=== PATIENT | male | born 1995 | race Caucasian/White ===

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

== ENCOUNTER 2017-08-04 11:10 | Emergency (ER) | payer BC | END 2017-08-04 13:49 | disposition left against medical advice (07) | LOC: UCCORT 11:10 | DX: J32.9 Chronic sinusitis, unspecified (principal); Z53.21 Procedure and treatment not carried out due to patient leaving prior to being seen by health care provider ==

== ENCOUNTER 2017-08-09 11:51 | Emergency (ER) | payer BC ==
[2017-08-09 15:15] VITALS: BP 125/63
--- NOTE | 2017-08-09 15:21 | UC ---
Throat Pain/Nasal Hal HPI - HPI Summary HPI Summary: Pt c/o nasal congestion, sinus pressure and pain X 5 months. - History of Current Complaint Stated Complaint: SINUS COMPLAINT Time Seen by Provider: 08/09/17 15:02 Hx Obtained From: Patient Onset/Duration: Gradual Onset, Lasting Weeks, Still Present, Worse Since - onset Severity: Moderate Pain Intensity: 0 Associated Signs & Symptoms: Positive: Sinus Discomfort - Epiglottits Risk Factors Epiglottis Risk Factors: Negative - Allergies/Home Medications Allergies/Adverse Reactions: Allergies Allergy/AdvReac Type Severity Reaction Status Date / Time No Known Allergies Allergy Verified 08/09/17 15:12 PMH/Surg Hx/FS Hx/Imm Hx Previously Healthy: Yes - Surgical History Surgical History: None - Family History Known Family History: Positive: Other - DEnies FMH of asthma - Social History Occupation: Student Lives: Dormitory/Roommates Alcohol Use: Occasionally Substance Use Type: None Smoking Status (MU): Never Smoked Tobacco Have You Smoked in the Last Year: No Review of Systems Constitutional: Fatigue Skin: Negative Eyes: Negative ENT: Sinus Congestion, Sinus Pain/Tenderness Respiratory: Cough Cardiovascular: Negative Gastrointestinal: Negative Genitourinary: Negative Motor: Negative Neurovascular: Negative Musculoskeletal: Negative Neurological: Headache Psychological: Negative Is Patient Immunocompromised?: No All Other Systems Reviewed And Are Negative: No Physical Exam Triage Information Reviewed: Yes Appearance: Ill-Appearing Vital Signs: Initial Vital Signs Temp 98.4 F 08/09/17 15:10 Pulse 50 08/09/17 15:10 Resp 14 08/09/17 15:10 BP 125/63 08/09/17 15:10 Pulse Ox 98 08/09/17 15:10 Vital Signs Reviewed: Yes Eye Exam: Normal ENT Exam: Other ENT: Positive: Nasal congestion, Sinus tenderness Dental Exam: Normal Neck exam: Normal Respiratory Exam: Normal Cardiovascular Exam: Normal Musculoskeletal Exam: Normal Neurological Exam: Normal Psychological Exam: Normal Skin Exam: Normal Throat Pain/Nasal Course/Dx - Differential Dx/Diagnosis Differential Diagnosis/HQI/PQRI: Sinusitis, URI Provider Diagnoses: Sinusitis. allergic rhinitis Discharge - Discharge Plan Condition: Stable Disposition: HOME Prescriptions: Amoxicillin PO (*) [Amoxicillin 875 MG (*)] 875 mg PO Q12H #20 tab Cetirizine HCl/Pseudoephedrine [Zyrtec-D Tablet] 1 each PO DAILY #14 tab Patient Education Materials: Sinusitis (ED) Referrals: [facility] [place] [facility] [place]] Non Staff,Doctor [Primary Care Provider] -
== END 2017-08-09 15:32 | disposition home or self-care (01) ==
LOC: UCCORT 11:51
DX: J32.9 Chronic sinusitis, unspecified (principal); J30.9 Allergic rhinitis, unspecified
CPT/HCPCS: 99212; G0463

== ENCOUNTER 2017-09-02 18:29 | Emergency (ER) | payer BC ==
[2017-09-02 19:20] VITALS: BP 126/70
--- NOTE | 2017-09-02 20:30 | UC ---
HPI Febrile Illness - HPI Summary HPI Summary: 2 day history of fever, cough, congestion, myalgias, headache. Flu B positive. - History of Current Complaint Chief Complaint: UCGeneralIllness Time Seen by Provider: 09/02/17 19:22 Hx Obtained From: Patient Onset/Duration: Started Days Ago - 2 Timing: Constant Initial Severity: Moderate Current Severity: Moderate Pain Intensity: 2 Associated Signs and Symptoms: Arthralgia, Chills, Headache - Risk Factors Pseudomonas Risk Factors: Negative Serious Bacterial Infection Risk Factors: Negative - Allergy/Home Medications Allergies/Adverse Reactions: Allergies Allergy/AdvReac Type Severity Reaction Status Date / Time No Known Allergies Allergy Verified 09/02/17 19:17 PMH/Surg Hx/FS Hx/Imm Hx Previously Healthy: Yes - Surgical History Surgical History: None - Family History Known Family History: Positive: None - parents living and healthy, Other - DEnies FMH of asthma - Social History Occupation: Student Lives: Alone Alcohol Use: Occasionally Substance Use Type: None Smoking Status (MU): Never Smoked Tobacco Have You Smoked in the Last Year: No Review of Systems Constitutional: Fever, Fatigue ENT: Sore Throat, Sinus Congestion Respiratory: Cough Musculoskeletal: Myalgia Neurological: Headache Is Patient Immunocompromised?: No All Other Systems Reviewed And Are Negative: Yes Physical Exam Triage Information Reviewed: Yes Appearance: Ill-Appearing - looks unwell Vital Signs: Initial Vital Signs Temp 100.5 F 09/02/17 19:14 Pulse 86 09/02/17 19:14 Resp 18 09/02/17 19:14 BP 126/70 09/02/17 19:14 Pulse Ox 98 09/02/17 19:14 Eyes: Positive: Conjunctiva Clear ENT: Positive: Pharynx normal, TM dull Neck: Positive: Supple, Nontender, No Lymphadenopathy Respiratory: Positive: Lungs clear, Normal breath sounds Cardiovascular: Positive: RRR, No Murmur Abdomen Description: Positive: Nontender, No Organomegaly, Soft Musculoskeletal Exam: Normal Neurological: Positive: Alert, Muscle Tone Normal Psychological Exam: Normal Skin Exam: Normal Diagnostics - Laboratory Diagnostic Studies Completed/Ordered: flu B positive Course/Dx - Course Course Of Treatment: increase fluids, tamiflu, tessalon perles for cough - Febrile Illness Differential Diagnoses: Other: - influenza - Diagnoses Clinic Provider Diagnoses: influenza B Discharge - Discharge Plan Condition: Stable Disposition: HOME Prescriptions: Benzonatate CAP* [Tessalon 100 MG CAP*] 100 mg PO TID PRN #30 cap PRN Reason: Cough Oseltamivir Phosphate [Tamiflu] 75 mg PO BID #10 capsule Patient Education Materials: Influenza (ED) Referrals: Non Staff,Doctor [Primary Care Provider] - Additional Instructions: As discussed, stay hydrated, use ibuprofen for headache, and you have a prescription for tessalon perles to suppress cough. Take tamiflu to decrease the clinical symptoms. You are NOT fit for travel to [place] this weekend. You will still be infectious.
== END 2017-09-02 20:43 | disposition home or self-care (01) ==
LOC: UCCORT 18:29
DX: J10.1 Influenza due to other identified influenza virus with other respiratory manifestations (principal)
CPT/HCPCS: 87502; 99212; G0463

== ENCOUNTER 2018-08-22 09:12 | Emergency (ER) | payer BC ==
--- NOTE | 2018-08-22 10:06 | UC ---
UC General HPI - HPI Summary HPI Summary: stitches to face 9 days ago by [facility]. no headache or complaints. was told to have them removed in 5 days but ended up waiting. - History of Current Complaint Stated Complaint: SUTURE REMOVAL Time Seen by Provider: 08/22/18 09:56 Hx Obtained From: Patient Associated Signs & Symptoms: Negative: Fever, Headache - Allergy/Home Medications Allergies/Adverse Reactions: Allergies Allergy/AdvReac Type Severity Reaction Status Date / Time No Known Allergies Allergy Verified 08/22/18 09:58 PMH/Surg Hx/FS Hx/Imm Hx Respiratory History: Asthma - Surgical History Surgical History: None - Family History Known Family History: Positive: None - parents living and healthy, Other - DEnies FMH of asthma - Social History Alcohol Use: Occasionally Substance Use Type: Marijuana Substance Use Comment - Amount & Last Used: yesterday Smoking Status (MU): Former Smoker Type: Cigarettes Have You Smoked in the Last Year: Yes When Did the Patient Quit Smoking/Using Tobacco: 5 days ago - Immunization History Hx Tetanus, Diphtheria Vaccination: Yes Vaccination Up to Date: Yes Review of Systems All Other Systems Reviewed And Are Negative: Yes Constitutional: Positive: Negative Skin: Positive: Negative Eyes: Positive: Negative ENT: Positive: Negative Respiratory: Positive: Negative Cardiovascular: Positive: Negative Gastrointestinal: Positive: Negative Genitourinary: Positive: Negative Motor: Positive: Negative Neurovascular: Positive: Negative Musculoskeletal: Positive: Negative Neurological: Positive: Negative Psychological: Positive: Negative Physical Exam Triage Information Reviewed: Yes Appearance: Well-Appearing Vital Signs Reviewed: Yes Eyes: Positive: Conjunctiva Clear ENT: Positive: Normal ENT inspection Neck: Positive: Supple Respiratory: Positive: Lungs clear Cardiovascular: Positive: RRR, No Murmur Abdomen Description: Positive: Nontender Bowel Sounds: Positive: Present Musculoskeletal: Positive: ROM Intact Neurological: Positive: Alert Psychological: Positive: Age Appropriate Behavior Skin Exam: Normal, Other - 6 stitches L medial brow area. site healed with no erythema or swelling. scab has formed over some of the stitches. Skin: Negative: Rashes Course/Dx - Course Course Of Treatment: 6 stitches removed from face. tolerated well. BP elevated , no hx htn. consumed [employer] plus arguing with girlfriend at time of visit to which he attributes his current BP. - Diagnoses Provider Diagnosis: Visit for suture removal Discharge - Sign-Out/Discharge Documenting (check all that apply): Patient Departure All imaging exams completed and their final reports reviewed: No Studies - Discharge Plan Condition: Stable Disposition: HOME Prescriptions: Albuterol HFA INHALER* [Ventolin HFA Inhaler*] 2 puff INH Q6H PRN #1 mdi PRN Reason: Sob/Wheezing Patient Education Materials: Stitchtaina Removal (ED) Referrals: LEILANI CORDERO [AbhishekBUSINESS, APPLICATION, OTHER] - If Needed - Billing Disposition and Condition Condition: STABLE Disposition: Home - Attestation Statements Provider Attestation: Per institutional requirements, I have reviewed the chart, however, I was not consulted specifically or made aware of this patient by the midlevel provider. I did not personally evaluate, interact with , or disposition this patient.
[2018-08-22 10:09] VITALS: BP 142/86
== END 2018-08-22 10:11 | disposition home or self-care (01) ==
LOC: UCCORT 09:12
DX: S09.93XD Unspecified injury of face, subsequent encounter (principal); J45.909 Unspecified asthma, uncomplicated; Z87.891 Personal history of nicotine dependence; X58.XXXD Exposure to other specified factors, subsequent encounter
CPT/HCPCS: 99212; G0463

== ENCOUNTER 2018-09-05 07:51 | Emergency (ER) | payer BC ==
[2018-09-05 08:29] VITALS: BP 131/84
--- NOTE | 2018-09-05 08:35 | UC ---
FLU HPI - HPI Summary HPI Summary: pt present with concern for flu 2 day progressive body aches, fatigue, sinus prssure, sore throat. No n/v. decreased appetitie. + flu contact no rash + OTC meds. no cancer Medications reviewed - History of Current Complaint Chief Complaint: UCRespiratory Stated Complaint: SORE THROAT COUGH SINUS FATIGUE Time Seen by Provider: 09/05/18 08:31 Hx Obtained From: Patient Onset/Duration: Gradual Onset Pain Intensity: 7 - Allergy/Home Medications Allergies/Adverse Reactions: Allergies Allergy/AdvReac Type Severity Reaction Status Date / Time No Known Allergies Allergy Verified 09/05/18 08:29 PMH/Surg Hx/FS Hx/Imm Hx Previously Healthy: Yes - Surgical History Surgical History: None - Family History Known Family History: Positive: None - parents living and healthy, Other - DEnies FMH of asthma, Non-Contributory - Social History Occupation: Student Lives: Dormitory/Roommates Alcohol Use: Occasionally Substance Use Type: Marijuana Substance Use Comment - Amount & Last Used: 'EVERY OTHER DAY' Smoking Status (MU): Former Smoker Type: eCigarettes Have You Smoked in the Last Year: Yes When Did the Patient Quit Smoking/Using Tobacco: 5 days ago - Immunization History Most Recent Tetanus Shot: WITHIN 5 YEARS Hx Tetanus, Diphtheria Vaccination: Yes Vaccination Up to Date: Yes Review of Systems All Other Systems Reviewed And Are Negative: Yes Constitutional: Positive: Fever, Fatigue Eyes: Positive: Negative ENT: Positive: Sore Throat, Nasal Discharge, Sinus Congestion, Sinus Pain/ Tenderness Respiratory: Positive: Cough Physical Exam - Summary Physical Exam Summary: Vital Signs Reviewed: Yes A+Ox3, tired appearing Eyes: Conjunctiva Clear, ENRIKE. EOM intact and full ENT: Hearing grossly normal TM x 2 with scant fluid, no erythema turbinates inflammed and boggy, + PND, mmoist, uvula midline, no exudate, no erythema Neck: Positive: Supple Respiratory: Positive: No respiratory distress, No accessory muscle use + CTA throughout no w/r intermittent cough Cardiovascular: RRR nl s1, s2 no m/r CBT <2 sec abd soft + BS nt/nd no guarding, no distension Musculoskeletal Exam: KERNS x 4 without difficulty Strength Intact, ROM Intact Neurological: Positive: Alert, + sensation throughout Psychological: Positive: Normal Response To Family Skin: Positive: no rash, no ecchymosis Triage Information Reviewed: Yes Vital Signs: Initial Vital Signs Temp 97.3 F 09/05/18 08:26 Pulse 55 09/05/18 08:26 Resp 16 09/05/18 08:26 BP 131/84 09/05/18 08:26 Pulse Ox 99 09/05/18 08:26 Flu Course/Dx - Course Course Of Treatment: Pt with body aches, fatigue, congestion, sore throat - concern for flu. VSS. congestion, mild erythema throat, cough. flu and strep neg. hydrate. humidified air. motrin/apap. secretion precatuion - Differential Dx/Diagnosis Provider Diagnosis: URI (upper respiratory infection), Viral syndrome Discharge - Sign-Out/Discharge Documenting (check all that apply): Patient Departure All imaging exams completed and their final reports reviewed: No Studies - Discharge Plan Condition: Stable Disposition: HOME Patient Education Materials: Viral Syndrome (ED) Forms: *Gen. Provider Communication, *School Release Referrals: [facility] [Outside] No Primary Care Phys,NOPCP [Primary Care Provider] - Additional Instructions: - Stay well hydrated. Drink plenty of non-alcoholic, non-caffinated beverages. - Alternate ibuprofen (Advil, Motrin) 600mg and Tylenol 1000mg every 3 hours for pain or fever. Take with food. Do NOT take for more than 4-5 days. - These infections are spread by secretions - do NOT share eating or drinking utensils - clean items you share with other people such as cell phones, computer mouse, TV remote, computer tablets,etc. Once you start to feel better, change your toothbrush and your pillowcase. - get plenty of restful sleep - humidify the air in the room where you sleep - boil water, run a hot steam shower, vaporizer, cups of water by heat register - okay to take over the counter decongestant and cough medication - continue to use flonase as prescribed - contact your doctor or student health or return with questions or concerns - Billing Disposition and Condition Condition: STABLE Disposition: Home
[2018-09-05 08:46] LABS: Influenza A Molecular NEGATIVE (Negative); Influenza B Molecular NEGATIVE (Negative)
== END 2018-09-05 09:12 | disposition home or self-care (01) ==
LOC: UCCORT 07:51
DX: J06.9 Acute upper respiratory infection, unspecified (principal); F17.290 Nicotine dependence, other tobacco product, uncomplicated
CPT/HCPCS: 87651; 99211; G0463

== ENCOUNTER 2019-03-27 11:04 | Emergency (ER) | payer BC ==
[2019-03-27 12:05] VITALS: BP 137/78
--- NOTE | 2019-03-27 12:13 | UC ---
Throat Pain/Nasal Hal HPI - HPI Summary HPI Summary: 23-year-old male presents with complaints of 3 week history of nasal congestion , sinus pressure, sore throat, and occasional productive cough. Reports has history of environmental allergies however his symptoms have been more severe than his typical allergies. Denies fever, chills, ear pain, dysphagia, chest pain, or shortness of breath. - History of Current Complaint Chief Complaint: UCRespiratory Stated Complaint: UPPER RESPITORY Time Seen by Provider: 03/27/19 12:06 Hx Obtained From: Patient Pain Intensity: 0 - Allergies/Home Medications Allergies/Adverse Reactions: Allergies Allergy/AdvReac Type Severity Reaction Status Date / Time No Known Allergies Allergy Verified 03/27/19 11:56 Home Medications: Home Medications D-Methorphan/PE/Acetaminophen [Vicks Dayquil Cold & Flu 10-5-325 mg/15Ml] 1 liq PO PRN 03/27/19 [History] Fexofenadine (NF) [Sujey 180 (NF)] 180 mg PO DAILY 03/27/19 [History Confirmed 03/27/19] Fluticasone NASAL SPRAY 50MCG* [Flonase NASAL SPRAY 50MCG*] 2 spray BOTH NARES DAILY 03/27/19 [History Confirmed 03/27/19] Pseudoephedrine TAB* [Sudafed TAB*] PRN 03/27/19 [History] PMH/Surg Hx/FS Hx/Imm Hx Previously Healthy: Yes - Denies significant PMH - Surgical History Surgical History: None - Family History Known Family History: Positive: Non-Contributory - Social History Occupation: Student Lives: Dormitory/Roommates Alcohol Use: Occasionally Substance Use Type: Marijuana Substance Use Comment - Amount & Last Used: 'EVERY OTHER DAY' Smoking Status (MU): Former Smoker Type: eCigarettes Amount Used/How Often: MODERATE Have You Smoked in the Last Year: Yes When Did the Patient Quit Smoking/Using Tobacco: 5 days ago - Immunization History Most Recent Tetanus Shot: WITHIN 5 YEARS Hx Tetanus, Diphtheria Vaccination: Yes Vaccination Up to Date: Yes Review of Systems All Other Systems Reviewed And Are Negative: Yes Constitutional: Negative: Fever, Chills Skin: Negative: Rash Eyes: Negative: Drainage, Eye Redness ENT: Positive: Sore Throat, Nasal Discharge, Sinus Congestion, Sinus Pain/ Tenderness. Negative: Ear Ache Respiratory: Positive: Cough. Negative: Shortness Of Breath Cardiovascular: Negative: Palpitations, Chest Pain Gastrointestinal: Positive: Negative Genitourinary: Positive: Negative Musculoskeletal: Positive: Negative Neurological: Positive: Negative Is Patient Immunocompromised?: No Physical Exam - Summary Physical Exam Summary: GENERAL APPEARANCE: Well developed, well nourished, alert and cooperative, and appears to be in no acute distress. EYES: Conjunctiva clear. No drainage. EARS: External auditory canals and tympanic membranes clear, hearing grossly intact. NOSE: Moderate nasal congestion. No nasal discharge. Maxillary sinus tenderness with percussion. THROAT: Pharynx normal. 1+ tonsils without exudate or lesions. Uvula midline. NECK: Neck supple, non-tender without lymphadenopathy. CARDIAC: Normal S1 and S2. No S3, S4 or murmurs. Rhythm is regular. There is no peripheral edema, cyanosis or pallor. Extremities are warm and well perfused. Capillary refill is less than 2 seconds. Peripheral pulses intact. LUNGS: Clear to auscultation without rales, rhonchi, wheezing or diminished breath sounds. Non-productive cough. ABDOMEN: Positive bowel sounds. Soft, nondistended, nontender. No guarding or rebound. No masses or hepatosplenomegally. MUSKULOSKELETAL: ROM intact to all extremities. No joint erythema or tenderness. Normal muscular development. Normal gait. SKIN: Skin normal color, texture and turgor with no lesions or eruptions. Triage Information Reviewed: Yes Vital Signs: Initial Vital Signs Temp 98.7 F 03/27/19 11:59 Pulse 69 03/27/19 11:59 Resp 15 03/27/19 11:59 BP 137/78 03/27/19 11:59 Pulse Ox 99 03/27/19 11:59 Vital Signs Reviewed: Yes Throat Pain/Nasal Course/Dx - Course Course Of Treatment: 23-year-old male presents with complaints of 3 week history of nasal congestion , sinus pressure, sore throat, and occasional productive cough. Reports has history of environmental allergies however his symptoms have been more severe than his typical allergies. Denies fever, chills, ear pain, dysphagia, chest pain, or shortness of breath. Afebrile. Vital signs stable. Patient had moderate nasal congestion, maxillary sinus tenderness, 1+ tonsils without exudate, no cervical lymphadenopathy, clear bilateral breath sounds, and nonproductive cough, and otherwise unremarkable exam. Considering the duration of symptoms will treat the patient for an acute bacterial sinusitis with amoxicillin 875 mg twice a day 10 days as well as symptomatic care. He is to return here or follow up at the [facility] in 3-5 days if symptoms are not better. Anticipatory guidance and warning symptoms were reviewed with the patient. Verbalizes understanding and agrees with plan of care. - Differential Dx/Diagnosis Differential Diagnosis/HQI/PQRI: Pharyngitis, Sinusitis, Tonsillitis, URI Provider Diagnosis: Acute maxillary sinusitis Discharge ED - Sign-Out/Discharge Documenting (check all that apply): Patient Departure All imaging exams completed and their final reports reviewed: No Studies - Discharge Plan Condition: Stable Disposition: HOME Prescriptions: Amoxicillin PO (*) [Amoxicillin 875 MG (*)] 875 mg PO BID #20 tab Patient Education Materials: Sinusitis (ED) Referrals: No Primary Care Phys,NOPCP [Primary Care Provider] - Additional Instructions: Your history and exam are consistent with a sinus infection. Considering the duration of your symptoms we will treat the infection with an antibiotic. Take amoxicillin 875 mg 1 tab twice a day for 10 days. Take with food to avoid upset stomach. Be sure to complete the entire course even if feeling better. Drink plenty of fluids to avoid dehydration especially if you are running any fever. Use a saline rinse kit such as Neti Pot or NeilMed at least twice a day to help thin secretions and promote drainage of the sinuses. Use fluticasone (Flonase) nasal spray 2 sprays each nostril once daily. Use an over the counter decongestant such as Sudafed according to directions to help with congestion. Take over the counter acetaminophen (Tylenol) or ibuprofen (Advil, Motrin) according to directions as needed for pain or fever. Return here or follow up with the [facility] in 3-5 days if symptoms persist. Seek immediate medical attention in the emergency room if you have fever greater than 100.5 F despite taking acetaminophen or ibuprofen, have chest pain , difficulty breathing, are unable to swallow, or have any worsening of symptoms. - Billing Disposition and Condition Condition: STABLE Disposition: Home
== END 2019-03-27 12:25 | disposition home or self-care (01) ==
LOC: UCCORT 11:04
DX: J01.00 Acute maxillary sinusitis, unspecified (principal); Z87.890 Personal history of sex reassignment
CPT/HCPCS: 99212; G0463

== ENCOUNTER 2019-05-01 10:44 | Emergency (ER) | payer BC ==
[2019-05-01 11:37] VITALS: BP 143/79
--- NOTE | 2019-05-01 11:54 | UC ---
Respiratory Complaint HPI - HPI Summary HPI Summary: 24yo with cough and congestion increased for the past 4 days, but has not felt well for several months. Hx of asthma and allergies, has been without albuterol , and has never used a steroid inhaler in the past. No fever, chest feels tight and has had some wheeze. - History of Current Complaint Chief Complaint: UCRespiratory Stated Complaint: ST,CHEST CONGESTION,COUGH Time Seen by Provider: 05/01/19 11:32 Hx Obtained From: Patient Onset/Duration: Gradual Onset, Lasting Weeks, Worse Since - 4 days. Timing: Intermittent Episodes Severity Initially: Moderate Severity Currently: Moderate Pain Intensity: 5 Character: Cough: Nonproductive Aggravating Factors: Allergens, Recumbent Position Alleviating Factors: OTC Meds Associated Signs And Symptoms: Positive: Wheezing, URI, Nasal Congestion, Sinus Discomfort. Negative: Dyspnea - Risk Factors Pulmonary Embolism Risk Factors: Negative Cardiac Risk Factors: Negative Pseudomonas Risk Factors: Negative Tuberculosis Risk Factors: Negative - Allergies/Home Medications Allergies/Adverse Reactions: Allergies Allergy/AdvReac Type Severity Reaction Status Date / Time No Known Allergies Allergy Verified 05/01/19 11:33 Home Medications: Home Medications Dm/Acetaminophen/Doxylamine [Nighttime Cold-Flu Rlf Sftgl] 1 each PO ONCE [History Confirmed 05/01/19] PMH/Surg Hx/FS Hx/Imm Hx Previously Healthy: Yes Respiratory History: Asthma - Surgical History Surgical History: None - Family History Known Family History: Positive: Non-Contributory - Social History Occupation: Student Lives: Dormitory/Roommates Alcohol Use: Occasionally Substance Use Type: Marijuana Substance Use Comment - Amount & Last Used: daily Smoking Status (MU): Former Smoker Type: Cigarettes Amount Used/How Often: with marijuana Have You Smoked in the Last Year: Yes When Did the Patient Quit Smoking/Using Tobacco: 5 days ago - Immunization History Most Recent Tetanus Shot: WITHIN 5 YEARS Hx Tetanus, Diphtheria Vaccination: Yes Vaccination Up to Date: Yes Review of Systems All Other Systems Reviewed And Are Negative: Yes Constitutional: Positive: Fatigue Skin: Positive: Negative ENT: Positive: Sore Throat, Ear Ache, Nasal Discharge, Sinus Congestion, Sinus Pain/Tenderness Respiratory: Positive: Cough Cardiovascular: Positive: Negative. Negative: Chest Pain Gastrointestinal: Positive: Negative Genitourinary: Positive: Negative Motor: Positive: Negative Neurovascular: Positive: Negative Musculoskeletal: Positive: Negative Neurological: Positive: Negative Psychological: Positive: Negative Is Patient Immunocompromised?: No Physical Exam Triage Information Reviewed: Yes Appearance: No Pain Distress, Ill-Appearing - looks fatigued. Vital Signs: Initial Vital Signs Temp 98.5 F 05/01/19 11:31 Pulse 74 05/01/19 11:31 Resp 16 05/01/19 11:31 BP 143/79 05/01/19 11:31 Pulse Ox 98 05/01/19 11:31 ENT: Positive: Pharyngeal erythema, TM dull, TM red - on right Neck: Positive: Supple, Nontender, No Lymphadenopathy Respiratory: Positive: Decreased breath sounds, Rhonchi - coarse breath sounds with mildly prolonged expiration phase. Cardiovascular: Positive: RRR Abdomen Description: Positive: Nontender, No Organomegaly, Soft Musculoskeletal Exam: Normal Neurological Exam: Normal Psychological Exam: Normal Skin Exam: Normal Respiratory Course/Dx - Course Course Of Treatment: augmentin for treatment of sinusitis and progressive ear symptoms, trial of montelukast, and albuterol for use - Differential Dx/Diagnosis Differential Diagnosis/HQI/PQRI: Asthma, Laryngitis, Lower Resp Infection, Sinusitis Provider Diagnosis: Sinusitis Discharge ED - Sign-Out/Discharge Documenting (check all that apply): Patient Departure All imaging exams completed and their final reports reviewed: No Studies - Discharge Plan Condition: Good Disposition: HOME Prescriptions: Albuterol HFA INHALER* [Ventolin HFA Inhaler*] 2 puff INH Q6H PRN #1 mdi PRN Reason: Wheezing Amoxicillin/Clavulanate TAB* [Augmentin TAB 875*] 875 mg PO BID #20 tab Montelukast Sodium TAB* [Singulair 10 MG TAB*] 10 mg PO BEDTIME #30 tab Patient Education Materials: Sinusitis (ED), Allergies (ED) Referrals: No Primary Care Phys,NOPCP [Primary Care Provider] - Additional Instructions: For treatment of sinus and early ear infection, begin use of augmentin twice daily. You have an albuterol inhaler to use as needed for wheezing. As a trial, you can use sinlair = montelukast for allergies. This takes some days to become effective, but might improve you allergies and asthma. IF YOU DO NOT HAVE ANY EFFECT AFTER 3 WEEKS, DISCONTINUE THE MEDICATION. IF IT IS EFFECTIVE, FOLLOW UP WITH YOUR PRIMARY CARE DOCTOR TO CONSIDER A LONGER TERM PRESCRIPTION. - Billing Disposition and Condition Condition: GOOD Disposition: Home
== END 2019-05-01 12:20 | disposition home or self-care (01) ==
LOC: UCCORT 10:44
DX: J32.9 Chronic sinusitis, unspecified (principal); R05 Cough; J45.909 Unspecified asthma, uncomplicated; R53.83 Other fatigue; Z87.891 Personal history of nicotine dependence
CPT/HCPCS: 99212; G0463